=== PATIENT | male | born 1960 | race Caucasian/White ===

== ENCOUNTER → 2021-03-05 | Outpatient (CLI) | payer OTHER ==
[~2021-03-05] MED LIST: OMNIPAQUE 350 MG/ML, 100ML BOTTLE ONE
== END | disposition home or self-care (01) ==
LOC: CFH 07:52
PROVIDERS: ATTEND Student in an Organized Health Care Education/Training Program
DX: K11.20 Sialoadenitis, unspecified (principal); M50.321 Other cervical disc degeneration at C4-C5 level
CPT/HCPCS: 70491; 82565; Q9967